=== PATIENT | male | born 1960 | race Caucasian/White ===

== ENCOUNTER → 2021-05-05 07:51 | Outpatient (CLI) | payer BC, SELFPAY ==
--- NOTE | ~2021-05-05 | MR_ITS ---
EXAMINATION: MR shoulder RT wo con DATE: 05/05/2021 08:32 INDICATION: Right shoulder pain TECHNIQUE: Magnetic resonance imaging (MRI) of the right shoulder was performed without intravenous c ontrast. Sequences included axial PD-weighted FS FSE, coronal oblique PD-weighted FS FSE, coronal obl ique T2-weighted FS FSE, sagittal PD-weighted FS FSE, and sagittal T1-weighted SE. COMPARISON: Right shoulder radiographs dated 04/15/2021 FINDINGS: Coracoacromial arch: The acromion undersurface is minimally curved in morphology (type I-II) with lateral downsloping. The coracoacromial ligament is normal. Mild acromioclavicular osteoarthritis. Rotator cuff: Mild tendinopathy without tear of the conjoined portion of the supraspinatus and infraspinatus tendon s. The teres minor tendon is normal. Mild subscapularis tendinopathy without discrete tear. Normal ro tator cuff muscle bulk and signal. Biceps tendon, glenoid labrum and glenohumeral cartilage: Long head of the biceps tendon is a small in caliber but without evident tendinopathy or tear. Subtle tear at the posterior superior glenoid labrum. Glenohumeral cartilage is normal. Fluid: Physiologic amount of fluid in the glenohumeral joint and biceps tendon sheath. No loose osteochondra l bodies. Mild increased fluid signal in the subacromial/subdeltoid bursa consistent with mild bursit is. Bones: Normal marrow signal with no edema, fracture or abnormal marrow replacing process. IMPRESSION: 1. Mild tendinopathy of the subscapularis tendon and conjoined supraspinatus and infraspinatus tendon s without discrete tear. 2. Subtle tear at the posterior superior glenoid labrum. 3. Mild subacromial/subdeltoid bursitis. 4. Mild acromioclavicular osteoarthritis. Reviewed, dictated and finalized at location A. [facility] IMPRESSION: 1. Mild tendinopathy of the subscapularis tendon and conjoined supraspinatus an d infraspinatus tendons without discrete tear. 2. Subtle tear at the posterior superior glenoid labrum. 3. Mild subacromial/subdeltoid bursitis. 4. Mild acromioclavicular osteoarthritis.
== END ==
PROVIDERS: PCP Emergency Medicine; Visit Provider Orthopaedic Surgery
DX: M25.511 Pain in right shoulder (principal); M75.81 Other shoulder lesions, right shoulder; S43.431A Superior glenoid labrum lesion of right shoulder, initial encounter; M75.51 Bursitis of right shoulder; M19.011 Primary osteoarthritis, right shoulder
CPT/HCPCS: 73221

== ENCOUNTER 2023-10-20 18:55 | Emergency (ER) | payer OTHER, SELFPAY ==
--- NOTE | ~2023-10-20 | US_ITS ---
EXAMINATION: US venous doppler LE RT DATE: 10/20/2023 22:17 INDICATION: Right lower limb pain and swelling TECHNIQUE: Grayscale ultrasound images without and with compression and Doppler ultrasound images of the right lower extremity veins were obtained. COMPARISON: None. FINDINGS: The right popliteal and gastrocnemius veins were partially compressible with nonocclusive thrombus. T he visualized portions of right common femoral vein, profunda (deep) femoral vein, femoral vein, popl iteal vein, peroneal trunk, posterior tibial veins, peroneal veins and greater saphenous vein outflow are patent. IMPRESSION: 1. Nonocclusive deep venous thrombosis in the right popliteal and gastrocnemius veins. Reviewed, dictated and finalized at location A.
[2023-10-20 18:57] VITALS: BP 145/102; PULSE 102; RESP 16; TEMP 36.9; O2SAT 96
[2023-10-20 21:09] LABS: Basophils Absolute Auto 0.1 K/mm3 (0.0-0.1); Eosinophils Absolute Auto 0.1 K/mm3 (0-0.3); Eosinophils Percent Auto 1.9 % (0-4.4); Hematocrit 45.6 % (42.0-52.0); Hemoglobin 16.1 g/dL (14.0-18.0); Immature Granulocyte Absolute 0.03 K/mm3 (0.00-0.031); Immature Granulocyte Percent A 0.4 % (0-0.5); Lymphocytes Absolute Auto 2.19 K/mm3 (0.9-3.2); Lymphocytes Percent Auto 32.5 % (18.3-44.2); Mean Corpuscular HGB Conc 35.3 g/dl (32-36); Mean Corpuscular Hemoglobin 31.3 pg (26-34); Mean Corpuscular Volume 88.7 fl (80-100); Mean Platelet Volume 9.3 fl (7.4-10.4); Monocytes Absolute Auto 0.6 K/mm3 (0.1-0.6); Monocytes Percent Auto 9.2 % (2.6-8.5); Neutrophils Absolute Auto 3.7 K/mm3 (1.3-6.7); Platelet Count Result 220 k/mm3 (150-375); Red Blood Count 5.14 M/mm3 (4.6-6.20); Red Cell Distribution Width 12.9 % (11.5-14.5); White Blood Count 6.7 K/mm3 (4.5-10.0)
[2023-10-20 21:20] LABS: Alanine Aminotransferase 26 U/L (6-50); Alkaline Phosphatase 93 U/L (38-126); Anion Gap 13 mmol/L (4-12); Aspartate Amino Transferase 31 U/L (17-59); Bilirubin,Total 0.9 mg/dL (0.2-1.3); Blood Urea Nitrogen 12 mg/dL (9-20); Calcium 9.6 mg/dL (8.4-10.2); Carbon Dioxide 27 mmol/L (22-30); Chloride 100 mmol/L (98-107); Estimated CRCL calculation 63 ml/min; Estimated Glomerular Filt Rate > 60; Glucose 97 mg/dL (65-110); Sodium 140 mmol/L (137-145)
[2023-10-20 21:25] LABS: Partial Thromboplastin Time 29.4 Seconds (22.3-36.8); Prothrombin Time 13.9 Seconds (11.1-14.7)
[2023-10-20 21:35] LABS: D Dimer < 0.27 ug/mL (<0.48)
--- NOTE | 2023-10-20 21:43 | ED.GENADULT ---
HPI - General Adult General Chief complaint: Extremity Problem,Nontraumatic Stated complaint: blood clot Time Seen by Provider: 10/20/23 20:07 History of Present Illness HPI narrative: the patient is 60-year-old gentleman who presents emergency department with chief complaint pain and swelling of the right lower extremity. The patient contacted his primary care provider who recommended to come to the emergency department for a Doppler to evaluate possible DVT. The patient reports no trauma reports no immobilization the patient did report that the leg appears be a little swollen Related Data Home Medications Medication Instructions Recorded Confirmed aspirin 81 mg capsule 81 mg PO DAILY 04/15/21 06/07/21 omeprazole 20 mg tablet,delayed 20 mg PO DAILY 04/15/21 06/07/21 release Allergies Allergy/AdvReac Type Severity Reaction Status Date / Time Penicillins Allergy Unknown Unknown Verified 10/20/23 18:59 Review of Systems Review of Systems: A 10 system review of systems was completed on the patient and is negative except for what is stated in the HPI. Nursing and ancillary documentation was reviewed. 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 HEAD: Normocephalic, atraumatic. EYES: PERRLA and EOMI. ENT: Nares clear, no rhinorrhea or epistaxis. Mucous membranes moist. NECK: Supple. CHEST: Clear to auscultation. No respiratory distress. HEART: Regular rate and rhythm. No murmur heard. Normal peripheral pulses. ABDOMEN: Soft, nontender, nondistended, normal active bowel sounds. EXTREMITIES: Normal range of motion. +1 edema of right lower extremity. SKIN: Warm, dry, no rash. NEURO: No focal deficits. Alert and oriented x3. PSYCH: Normal mood and affect. Course Vital Signs Vital signs: Vital Signs Temperature 36.9 C 10/20/23 18:57 Pulse Rate 102 H 10/20/23 18:57 Respiratory Rate 16 10/20/23 18:57 Blood Pressure 145/102 H 10/20/23 18:57 Pulse Oximetry 96 10/20/23 18:57 Temperature 36.9 C 10/20/23 18:57 Pulse Rate 102 H 10/20/23 18:57 Respiratory Rate 16 10/20/23 18:57 Blood Pressure 145/102 H 10/20/23 18:57 Pulse Oximetry 96 10/20/23 18:57 Medical Decision Making MDM Narrative Medical decision making narrative: differential diagnosis in lower edema, DVT, patient is showing no signs of pulmonary embolism this time no chest pain or shortness of breath stable vital signs. Laboratory studies were obtained on the patient showed normal CBC normal CMP including a normal D-dimer Vital Signs Vital Signs: Vital Signs Temperature 36.9 C 10/20/23 18:57 Pulse Rate 102 H 10/20/23 18:57 Respiratory Rate 16 10/20/23 18:57 Blood Pressure 145/102 H 10/20/23 18:57 Pulse Oximetry 96 10/20/23 18:57 Temperature 36.9 C 10/20/23 18:57 Pulse Rate 102 H 10/20/23 18:57 Respiratory Rate 16 10/20/23 18:57 Blood Pressure 145/102 H 10/20/23 18:57 Pulse Oximetry 96 10/20/23 18:57 Lab Data 10/20/23 20:59 10/20/23 20:59 Labs: Lab Results 10/20/23 Range/Units 20:59 WBC 6.7 (4.5-10.0) K/mm3 RBC 5.14 (4.6-6.20) M/mm3 Hgb 16.1 (14.0-18.0) g/dL Hct 45.6 (42.0-52.0) % MCV 88.7 (80-100) fl MCH 31.3
[2023-10-20] MEDS: ENOXAPARIN 100 MG/ML SYRINGE 90 MG SUB-Q (23:07)
[2023-10-20 23:13] VITALS: BP 148/97; PULSE 65; RESP 15; O2SAT 99
== END 2023-10-20 23:14 | disposition home or self-care (01) ==
PROVIDERS: Emergency Provider Emergency Medicine; PCP Emergency Medicine
DX: I82.431 Acute embolism and thrombosis of right popliteal vein (principal); I82.461 Acute embolism and thrombosis of right calf muscular vein
CPT/HCPCS: 36415; 80053; 85025; 85380; 85610; 85730; 93971; 96372; 99284; J1650